=== PATIENT | female | born 1950 | race Caucasian/White ===

== ENCOUNTER 2021-06-13 18:52 | Emergency (ER) | payer MEDICARE ==
[~2021-06-13 18:52] MED LIST: HYDROCODON-ACET15 ML PO; HYDROCODONE AC PO; MELATONIN PO
[2021-06-13] MEDS ORDERED: CEPHALEXIN500 MG PO (21:48)
== END 2021-06-13 22:14 | disposition home or self-care (01) ==
LOC: FER 18:52
DX: S91.332A Puncture wound without foreign body, left foot, initial encounter (principal); L03.116 Cellulitis of left lower limb; W45.8XXA Other foreign body or object entering through skin, initial encounter; Y92.009 Unspecified place in unspecified non-institutional (private) residence as the place of occurrence of the external cause
CPT/HCPCS: 73620; 90471; 90715